=== PATIENT | male | born 1975 | race Caucasian/White ===

== ENCOUNTER 2021-07-08 15:49 | Emergency (ER) | payer OTHER ==
[~2021-07-08] VITALS: Ht 177.8 cm; Wt 77.2 kg
[2021-07-08] MEDS ORDERED: IV NORMAL SALINE 1000ML BAG 1,000 ML IV ONE (16:15)
[2021-07-08] MEDS ORDERED: MORPHINE SULFATE 4 MG/ML INJ. IVP ONE (16:15)
[2021-07-08] MEDS ORDERED: ONDANSETRON PF 4 MG/2 ML VIAL. IVP ONE (16:15)
[2021-07-08 16:22] LABS: BASO # 0.1 x10^3/uL (0.0-0.2); BASO % 1 % (0-3); EOS % 1 % (0-3); HEMOGLOBIN 16.8 g/dL (13.0-17.5); LYMPH # 2.2 x10^3/uL (1.0-4.8); LYMPH % 25 % (24-48); MEAN CORPUSCULAR HEMOGLOBIN 31 pg (25-35); MEAN CORPUSCULAR HGB CONC 34 g/dL (31-37); MEAN CORPUSCULAR VOLUME 91 fL (79-100); MONO # 0.6 x10^3/uL (0.0-1.1); MONO % 7 % (0-9); NEUT # 5.9 x10^3/uL (1.8-7.7); NEUT % 67 % (31-73); PLATELET COUNT 281 x10^3/uL (140-400); RED BLOOD COUNT 5.41 x10^6/uL (4.30-5.70); RED CELL DISTRIBUTION WIDTH 13.7 % (11.5-14.5); WHITE BLOOD COUNT 8.8 x10^3/uL (4.0-11.0)
[2021-07-08 16:34] LABS: CALCIUM 8.8 mg/dL (8.5-10.1); CREATININE 1.2 mg/dL (0.7-1.3); GFR 65.2; POTASSIUM 3.7 mmol/L (3.5-5.1)
[2021-07-08 16:39] LABS: ALBUMIN 4.1 g/dL (3.4-5.0); ALBUMIN/GLOBULIN RATIO 1.2 (1.0-1.7); TOTAL BILIRUBIN 0.5 mg/dL (0.2-1.0); TOTAL PROTEIN 7.5 g/dL (6.4-8.2)
[2021-07-08] MEDS ORDERED: CONTRAST GIVEN. MC PRN (16:45)
[2021-07-08] MEDS ORDERED: IOHEXOL 300 MG/ML 100ML VIAL. IV ONE (16:45)
--- NOTE | 2021-07-08 16:49 | RAD ---
EXAM: Frontal view of the chest, AP views of the abdomen in upright and supine positions. CLINICAL INDICATION: Reason: severe abd pain / Spl. Instructions: / History: COMPARISON: None. FINDINGS and IMPRESSION: The heart is not enlarged. Mediastinal and hilar contours are normal. No focal parenchymal airspace opacity. No pleural effusion or pneumothorax. No acute osseous abnormality. No abnormal small or large bowel dilatation. Moderate colonic stool content within the proximal colo n. No abnormal soft tissue mass effect. No suspicious calcifications are seen. No free intraperito clyde gas. Electronically signed by: Jamel Orona DO (07/08/2021 4:46 PM) [facility]
--- NOTE | 2021-07-08 17:17 | RAD ---
EXAM: CT ABDOMEN/PELVIS WITH CONTRAST. HISTORY: Abdominal pain. TECHNIQUE: Computed tomography of the abdomen and pelvis was performed after the intravenous administ ration of iodinated contrast. One or more of the following individualized dose reduction techniques w ere utilized for this examination: 1. Automated exposure control. 2. Adjustment of the mA and/or kV according to patient size. 3. Use of iterative reconstruction technique. COMPARISON: None. FINDINGS: Lung windows through the visualized portions of the bases reveal no abnormality. Bone windo ws reveal no suspicious lesions. The liver, gallbladder, pancreas, spleen, adrenal glands, and kidneys are unremarkable. There are no pathologically enlarged lymph nodes. Small bilateral inguinal hernias contain only fat. A small umbilical hernia also contains only fat. There is mild bladder wall thickening. The appendix is not inflamed. There is no small bowel obstruct ion. IMPRESSION: 1. Small bilateral inguinal and umbilical hernias contain only fat. 2. Nonfocal bladder wall thickening suggests chronic outlet obstruction or inflammation. Correlate urinalysis. Electronically signed by: Ana Gutierrez MD (07/08/2021 5:15 PM) [id number]
--- NOTE | 2021-07-08 17:24 | PHYS DOC ---
Past Medical History Past Surgical History: Tonsillectomy, Other Additional Past Surgical Histo: adenoidectomy (OTTONIEL RIBEIRO MD) Smoking Status: Current Every Day Smoker Alcohol Use: Occasionally (OTTONIEL RIBEIRO MD) General Adult EDM: Chief Complaint: ABDOMINAL PAIN HPI: HPI: Patient is a 45 year old male with history of inguinal hernias who presents with severe abdominal pain starting 1 hour prior to arrival. Periumbilical. Does not radiate. Has been sharp/throbbing and constant. Asso ciated with nausea and vomiting. No fever/chills. No diarrhea, hematochezia, or melena. Denies any pain in the groin. No dysuria, urgency, or frequency. (OTTONIEL RIBEIRO MD) Review of Systems: Review of Systems: Constitutional: Denies fever or chills. [] Eyes: Denies change in visual acuity. [] HENT: Denies nasal congestion or sore throat. [] Respiratory: Denies cough or shortness of breath. [] Cardiovascular: Denies chest pain or edema. [] GI: Reports abdominal pain, nausea, vomiting : Denies dysuria. [] Musculoskeletal: Denies back pain or joint pain. [] Integument: Denies rash. [] Neurologic: Denies headache, focal weakness or sensory changes. [] Endocrine: Denies polyuria or polydipsia. [] Lymphatic: Denies swollen glands. [] Psychiatric: Denies depression or anxiety. [] (OTTONIEL RIBEIRO MD) Heart Score: C/O Chest Pain: N/A Risk Factors: Risk Factors: DM, Current or recent (<one month) smoker, HTN, HLP, family history of CAD, obesity. Risk Scores: Score 0 - 3: 2.5% MACE over next 6 weeks - Discharge Home Score 4 - 6: 20.3% MACE over next 6 weeks - Admit for Clinical Observation Score 7 - 10: 72.7% MACE over next 6 weeks - Early Invasive Strategies (OTTONIEL RIBEIRO MD) C/O Chest Pain: No (NAYA CUMMINS MD) Current Medications: Current Medications Medications (Trade) Dose Ordered Sig/Isela Start Time Stop Time Status Last Admin Dose Admin Info (CONTRAST GIVEN -- Rx MONITORING) 1 each PRN DAILY PRN 07/08/21 16:45 07/10/21 16:44 Iohexol (Omnipaque 300 Mg/ml) 75 ml 1X ONCE 07/08/21 16:45 07/08/21 16:46 DC 07/08/21 16:50 75 ML Morphine Sulfate (Morphine Sulfate) 4 mg 1X ONCE 07/08/21 16:15 07/08/21 16:16 DC 07/08/21 16:19 4 MG Ondansetron HCl (Zofran) 4 mg 1X ONCE 07/08/21 16:15 07/08/21 16:16 DC 07/08/21 16:19 4 MG Sodium Chloride 1,000 ml @ 1,000 mls/hr 1X ONCE 07/08/21 16:15 07/08/21 17:14 DC 07/08/21 16:18 1,000 MLS/HR (OTTONIEL RIBEIRO MD) Allergies: Allergies: Allergies Coded Allergies Type Severity Reaction Last Updated Verified Penicillins Allergy Intermediate hives 07/08/21 Yes (OTTONIEL RIBEIRO MD) Physical Exam: PE: Constitutional: Tearful, diaphoretic, in obvious distress HENT: Normocephalic, atraumatic Eyes: conjunctiva normal, no discharge. [] Neck: Normal range of motion, no tenderness, supple, no stridor. [] Cardiovascular:Heart rate regular rhythm, no murmur [] Lungs & Thorax: Bilateral breath sounds clear to auscultation [] Abdomen: Abdomen with some rigidity and involuntary guarding, umbilicus with overlying redness, bulging hernia. unreducible at time of initial exam. Pe riumbilical area was the most tender to palpation, but he did have diffuse tenderness. Skin: Warm, dry, no erythema, no rash. [] Back: No tenderness, no CVA tenderness. [] Extremities: No tenderness, no cyanosis, no clubbing, ROM intact, no edema. [] Neurologic: Alert and oriented X 3, normal motor function, normal sensory function, no focal deficits noted. [] Psychologic: Affect normal, judgement normal, mood normal. [] (OTTONIEL RIBEIRO MD) Current Patient Data: Labs: Laboratory Tests Test 07/08/21 16:10 White Blood Count 8.8 x10^3/uL (4.0-11.0) Red Blood Count 5.41 x10^6/uL (4.30-5.70) Hemoglobin 16.8 g/dL (13.0-17.5) Hematocrit 49.0 % (39.0-53.0) Mean Corpuscular Volume 91 fL (79-100) Mean Corpuscular Hemoglobin 31 pg (25-35) Mean Corpuscular Hemoglobin Concent 34 g/dL (31-37) Red Cell Distribution Width 13.7 % (11.5-14.5) Platelet Count 281 x10^3/uL (140-400) Neutrophils (%) (Auto) 67 % (31-73) Lymphocytes (%) (Auto) 25 % (24-48) Monocytes (%) (Auto) 7 % (0-9) Eosinophils (%) (Auto) 1 % (0-3) Basophils (%) (Auto) 1 % (0-3) Neutrophils # (Auto) 5.9 x10^3/uL (1.8-7.7) Lymphocytes # (Auto) 2.2 x10^3/uL (1.0-4.8) Monocytes # (Auto) 0.6 x10^3/uL (0.0-1.1) Eosinophils # (Auto) 0.0 x10^3/uL (0.0-0.7) Basophils # (Auto) 0.1 x10^3/uL (0.0-0.2) Sodium Level 137 mmol/L (136-145) Potassium Level 3.7 mmol/L (3.5-5.1) Chloride Level 97 mmol/L (98-107) L Carbon Dioxide Level 26 mmol/L (21-32) Anion Gap 14 (6-14) Blood Urea Nitrogen 7 mg/dL (8-26) L Creatinine 1.2 mg/dL (0.7-1.3) Estimated GFR (Cockcroft-Gault) 65.2 BUN/Creatinine Ratio 6 (6-20) Glucose Level 99 mg/dL (70-99) Lactic Acid Level 3.1 mmol/L (0.4-2.0) H Calcium Level 8.8 mg/dL (8.5-10.1) Total Bilirubin 0.5 mg/dL (0.2-1.0) Aspartate Amino Transferase (AST) 21 U/L (15-37) Alanine Aminotransferase (ALT) 38 U/L (16-63) Alkaline Phosphatase 73 U/L (46-116) Total Protein 7.5 g/dL (6.4-8.2) Albumin 4.1 g/dL (3.4-5.0) Albumin/Globulin Ratio 1.2 (1.0-1.7) Lipase 100 U/L (73-393) Laboratory Tests 07/08/21 16:10 Laboratory Tests 07/08/21 16:10 Vital Signs: Vital Signs Date Time Temp Pulse Resp B/P (MAP) Pulse Ox O2 Delivery O2 Flow Rate FiO2 07/08/21 16:19 100 07/08/21 16:00 98.2 62 24 174/102 (126) Room Air 98.2 (OTTONIEL RIBEIRO MD) EKG: EKG: [] (OTTONIEL RIBEIRO MD) Radiology/Procedures: Radiology/Procedures: [] Impression: [address] [address] IMAGING REPORT Signed PATIENT: DOT AVILA ACCOUNT: [id number] : 05/29/1933 LOCATION: ER AGE: 88 SEX: F EXAM STATUS: PRE ER ORD. PHYSICIAN: OTTONIEL RIBEIRO MD REASON: LEFT HIP PAIN, S/P LEFT HIP REPLACEMENT, getting pain meds PROCEDURE: HIP LEFT 2V WITH PELVIS XR BILATERAL HIP (WITH OR WITHOUT PELVIS) LEFT 2 VIEWS History: Left hip pain status post left hip replacement. Comparison: 06/11/2021 Technique: Portable AP radiograph of the pelvis. Coned-down AP view of the right hip. 2. Lateral views of the left hip. Findings: Bilateral unipolar hip arthroplasty. Superior dislocation of the left proximal femur which is engaged on the anterior inferior iliac spine. No fracture is i dentified. The right hip remains normally aligned. Stool ball in the rectum as outlined by bowel gas. Impression: 1. 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 Electronically signed by: Ricky Mcnamara MD (07/08/2021 4:03 PM) [id number] DICTATED and SIGNED BY: RICKY MCNAMARA MD DATE: 07/08/21 [id number] [facility] [place] [address] IMAGING REPORT Signed PATIENT: YANI SERRANO ACCOUNT: [id number] : 1975 LOCATION: ER AGE: 45 SEX: M EXAM STATUS: PRE ER ORD. PHYSICIAN: OTTONIEL RIBEIRO MD REASON: severe abd pain PROCEDURE: ACUTE ABDOMEN SERIES EXAM: Frontal view of the chest, AP views of the abdomen in upright and supine positions. CLINICAL INDICATION: Reason: severe abd pain / Spl. Instructions: / History: COMPARISON: None. FINDINGS and IMPRESSION: The heart is not enlarged. Mediastinal and hilar contours are normal. No focal parenchymal airspace opacity. No pleural effusion or pneumothorax. No acute oss eous abnormality. No abnormal small or large bowel dilatation. Moderate colonic stool content within the proximal colon. No abnormal soft tissue mass effect. No suspicious calcifications are seen. No free intraperitoneal gas. Electronically signed by: Irvin Orona DO (07/08/2021 4:46 PM) [facility] DICTATED and SIGNED BY: IRVIN ORONA DO DATE: 07/08/21 [id number] (OTTONIEL RIBEIRO MD) Course & Med Decision Making: Course & Med Decision Making Pertinent Labs and Imaging studies reviewed. (See chart for details) Patient 45-year-old male with previous history of hernias who presents with severe sudden onset abdominal pain accompanied by nausea/vomiting. On arrival is tearful, diaphoretic, in obvious distress. There is evidence of an umbilical hernia with overlying erythema that was not reducible initially. Patient states his pain markedly improved after morphine, and felt a change in his bellybutton when his muscles were able to relax. Labs notable only for a lactate of 3.1. CT imaging shows fat-containing inguinal hernias, and does seem to have an umbilical hernia defect without any incarcerated or strangulated bowel. On reevaluation the umbilicus is easily reducible, with some minimal tenderness. The overlying skin changes are now gone. Feel this was most likely related to umbilical hernia. Will re-evaluate lactate and reassess as morphine starts to wane to determine most appropriate course of action. 173 Signed out to oncoming provider with repeat lactate pending. (OTTONIEL RIBEIRO MD) Course & Med Decision Making Accepted patient care at shift change pending repeat lactic. Discussed with surgery due to concern for increased lactic and bowel ischemia. He states that with just being an hour of strangulated hernia he should be okay to go home and follow-up with surgery. Discussed strict return precautions with patient, who voiced understanding (NAYA CUMMINS MD) Dragon Disclaimer: Dragon Disclaimer: This electronic medical record was generated, in whole or in part, using a voice recognition dictation system. (OTTONIEL RIBEIRO MD) Departure Departure Impression: Primary Impression: Umbilical hernia Additional Impression: Abdominal pain Disposition: HOME / SELF CARE / HOMELESS Condition: STABLE Referrals: EVI PEREZ MD Call to schedule an appointment regarding your hernias. Patient Instructions: Hernia Additional Instructions: Immediate return to emergency department if hernia is red, warm to the touch, unable to reduce. Also return to emergency department if you experience fevers an/ or nausea vomiting with hernia protruding. OTTONIEL RIBEIRO MD Jul 08, 2021 17:24 NAYA CUMMINS MD Jul 08, 2021 20:18
[2021-07-08 19:45] LABS: BILIRUBIN,URINE NEGATIVE (NEG); CLARITY,URINE CLEAR; COLOR,URINE YELLOW; NITRITE,URINE NEGATIVE (NEG); PH,URINE 6.5 (<5.0-8.0); PROTEIN,URINE NEGATIVE (NEG-TRACE); UROBILINOGEN,URINE 0.2 mg/dL (0.2 mg/dL)
[2021-07-08 19:51] LABS: BACTERIA,URINE FEW /HPF (0-FEW); RBC,URINE 0 /HPF (0-2); WBC,URINE OCC /HPF (0-4)
[2021-07-08 20:55] VITALS: BP 127/84
== END 2021-07-08 21:00 | disposition home or self-care (01) ==
LOC: ER 15:49
DX: K42.9 Umbilical hernia without obstruction or gangrene (principal); R11.2 Nausea with vomiting, unspecified; F17.200 Nicotine dependence, unspecified, uncomplicated; Z88.0 Allergy status to penicillin
CPT/HCPCS: 36415; 74022; 74177; 80053; 81001; 83605; 83690; 85025; 96361; 96374; 96375; 99285; J2270; J2405; J7030; Q9967